=== PATIENT | female | born 1990 | race Caucasian/White ===

== ENCOUNTER → 2017-07-05 | Day surgery (SDC) | payer BC ==
[~2017-07-05] MED LIST: Dexamethasone 4 MG/ML 5 ML MDV ONE; Glycopyrrolate 0.2 MG/ML SDV ONE; HYDROmorphone 0.5 MG/0.5 ML Syringe IVPUSH PRN; HYDROmorphone 1 MG/ML Syringe ONE; Ketorolac 30 MG/ML SDV ONE; Lactated Ringers 1,000 ML IV SCH; Lactated Ringers 1,000 ML ONE; Lidocaine 1% 4 ML ONE; Lidocaine 1% with EPINEPHrine 1:100,000 20 ML MDV ONE; Lidocaine 1%/Sod Bicarbonate in NS 8.4% 1 ML Syringe PRN; Midazolam 1 MG/ML 2 ML SDV ONE; Neostigmine Methylsulfate 10 MG/10 ML MDV ONE; Ondansetron 4 MG/2 ML SDV IVPUSH PRN; Ondansetron 4 MG/2 ML SDV ONE; Propofol 200 MG/20 ML SDV ONE; Rocuronium 50 MG/5 ML Vial ONE; Scopolamine 1.5 MG Transdermal Patch TRDERM ONE; Sodium Chloride 0.9% 10 ML Syringe FLUSH PRN; Zolpidem 5 MG Tab PO PRN; ceFAZolin 1 GM Vial ONE; diphenhydrAMINE 50 MG/ML SDV IVPUSH PRN; fentaNYL 100 MCG/2 ML SDV IVPUSH PRN; fentaNYL 250 MCG/5 ML SDV ONE
--- NOTE | 2017-07-05 07:03 | PCM.OPNOTE ---
- General Post-Op/Procedure Note Date of Surgery/Procedure: 07/05/17 Operative Procedure(s): Vaginal hysterectomy Findings: SVE with a mobile, anteverted uterus. No adnexal masses. Pre Op Diagnosis: Heavy menstrual bleeding. Dysmenorrhea Post-Op Diagnosis: Same Anesthesia Technique: General ET Tube Primary Surgeon: Michelle Bryson Secondary Surgeon: Ruth Block Anesthesia Provider: Cecilio Lehman Pathology: Cervix and uterus sent to pathology for further intervention Fluid Replacement, Intraop: 1,800 Output, Urine Amount: 40 EBL in mLs: 60 Complications: None Condition: Good Free Text/Narrative:: The risks, benefits, indications, potential complications, and alternatives were explained to the patient and informed consent obtained. The patient was taken to the Operating Room where general anesthesia was induced without complication and found to be adequate. The patient was placed in dorsal lithotomy with tez stirrups and an exam under anesthesia revealed the findings detailed above. The patient was then prepped and draped in the usual sterile fashion. A rosa catheter was placed into the bladder. A weighted speculum was placed in the vagina, and the cervix was grasped with two double tooth tenaculums. The cervix was injected circumferentially with 15 mL of lidocaine with dilute epinephrine. The cervix was then circumferentially incised with a scalpel. The posterior cul-de-sac was entered sharply without difficulty. The short weighted speculum was replaced with a long weighted speculum into the peritoneal cavity posteriorly. The bladder was dissected away from the pubovesical cervical fascia anteriorly with a sponge and blunt dissection. The uterosacral ligaments were grasped on either side, cauterized, and transected. Hemostasis was assured. A raytec was used for further blunt dissection of the bladder away from the pubovesical cervical fascia and then the anterior cul de sac was entered sharply with Metzenbaum scissors. The cardinal ligaments were then serially clamped on both sides, cauterized, and transected. The uterine arteries were then clamped, cauterized, and transected on both sides. Hemostasis was adequate. Both cornua were then clamped, cauterized, and transected. The uterus and cervix were then removed. The posterior peritoneum was then closed to the vaginal mucosa with a running, locked 0 vicryl suture. Next the vaginal cuff was closed with a running, locked 0 vicryl suture. Hemostasis was assured. All sponge, lap, needle, and instrument counts were correct x 2. The patient tolerated the procedure well and there were no complications.
--- NOTE | 2017-07-05 07:23 | PCM.PREANE ---
Preanesthetic Assessment - Procedure Proposed Procedure: Total vaginal hysterectomy. - Anesthesia/Transfusion/Family Hx Anesthesia History: Prior Anesthesia Reaction Type of Anesthesia Reaction: Excessive Nausea/Vomiting Family History of Anesthesia Reaction: No Transfusion History: No Prior Transfusion(s) Intubation History: Unknown - Review of Systems General: No Symptoms Pulmonary: No Symptoms Cardiovascular: No Symptoms Gastrointestinal: No Symptoms Neurological: No Symptoms Other: Reports: Depression, Anxiety - Physical Assessment NPO Status Date: 07/04/17 NPO Status Time: 20:00 Pulse: 57 O2 Sat by Pulse Oximetry: 96 Respiratory Rate: 16 Blood Pressure: 93/54 Temperature: 36.6 C Vital Signs: Entered. Height: 1.5 m Weight: 47 kg ASA Class: 2 Mental Status: Alert & Oriented x3 Airway Class: Mallampati = 2 Dentition: Reports: Normal Dentition Thyro-Mental Finger Breadths: 3 Mouth Opening Finger Breadths: 3 ROM/Head Extension: Full Lungs: Clear to Auscultation, Normal Respiratory Effort Cardiovascular: Regular Rate, Regular Rhythm - Allergies Allergies/Adverse Reactions: Allergies Allergy/AdvReac Type Severity Reaction Status Date / Time No Known Allergies Allergy Verified 07/05/17 07:24 - Anesthesia Plan Pre-Op Medication Ordered: None - Acknowledgements Anesthesia Type Planned: General Anesthesia Pt an Appropriate Candidate for the Planned Anesthesia: Yes Alternatives and Risks of Anesthesia Discussed w Pt/Guardian: Yes Pt/Guardian Understands and Agrees with Anesthesia Plan: Yes PreAnesthesia Questionnaire Gastrointestinal History: Reports: Other (See Below) (Crohn's disease) Psychiatric History: Reports: Anxiety, Bipolar, Depression - Past Surgical History Female Surgical History: Reports: Tubal Ligation - SUBSTANCE USE Smoking Status *Q: Current Every Day Smoker Recreational Drug Use History: No - CURRENT (IN HOUSE) MEDS Current Meds: Current Medications Lactated Ringer's (Ringers, Lactated) 1,000 mls @ 125 mls/hr IV ASDIRECTED KIRBY Stop: 07/05/17 23:00 Lidocaine/Sodium Bicarbonate (Buffered Lidocaine 1% In Ns 8.4%) 0.25 ml .XX ONETIME PRN PRN Reason: Prior to IV Start Stop: 07/05/17 18:00 Sodium Chloride (Saline Flush) 10 ml FLUSH ASDIRECTED PRN PRN Reason: Keep Vein Open Stop: 07/05/17 18:00 Discontinued Medications Cefazolin Sodium (Ancef) Confirm Administered Dose 2 gm .ROUTE .ST-MED ONE Stop: 07/05/17 07:04 Dexamethasone (Dexamethasone) Confirm Administered Dose 20 mg .ROUTE .ST-MED ONE Stop: 07/05/17 07:04 Fentanyl (Sublimaze) Confirm Administered Dose 250 mcg .ROUTE .STK-MED ONE Stop: 07/05/17 07:04 Hydromorphone HCl (Dilaudid) Confirm Administered Dose 1 mg .ROUTE .ST-MED ONE Stop: 07/05/17 07:04 Lidocaine HCl (Xylocaine-Mpf 1%) Confirm Administered Dose 4 mls @ as directed .ROUTE .[facility]-MED ONE Stop: 07/05/17 07:04 Lactated Ringer's (Ringers, Lactated) Confirm Administered Dose 1,000 mls @ as directed .ROUTE .[facility]-MED ONE Stop: 07/05/17 07:28 Ketorolac Tromethamine (Toradol) Confirm Administered Dose 30 mg .ROUTE .[facility] MED ONE Stop: 07/05/17 07:04 Midazolam HCl (Versed 1 Mg/Ml) Confirm Administered Dose 2 mg .ROUTE .ST-MED ONE Stop: 07/05/17 07:04 Ondansetron HCl (Zofran) Confirm Administered Dose 4 mg .ROUTE .ST-MED ONE Stop: 07/05/17 07:04 Propofol (Diprivan 20 Ml) Confirm Administered Dose 200 mg .ROUTE .ST-MED ONE Stop: 07/05/17 07:04 Rocuronium [place] (Zemuron) Confirm Administered Dose 50 mg .ROUTE .ST-MED ONE Stop: 07/05/17 07:04
--- NOTE | 2017-07-05 09:24 | PCM.POSTAN ---
POST ANESTHESIA ASSESSMENT - MENTAL STATUS Mental Status: Alert, Oriented - VITAL SIGNS Pulse Rate: 83 SaO2: 100 Resp Rate: 10 Blood Pressure: 95/65 Temperature: 36.9 C - RESPIRATORY Respiratory Status: Respiratory Rate WNL, Airway Patent, O2 Saturation Stable - CARDIOVASCULAR CV Status: Pulse Rate WNL, Blood Pressure Stable - GASTROINTESTINAL GI Status: No Symptoms - PAIN Pain Score: 0 - POST OP HYDRATION Hydration Status: Adequate & Stable
[2017-07-05] MEDS: Acetaminophen/oxyCODONE 325-5 MG Tab PO PRN ×2 (11:34→17:32)
[2017-07-05] MEDS: Ketorolac 30 MG/ML SDV IVPUSH SCH ×2 (15:04→20:36)
[2017-07-06] MEDS: Acetaminophen/oxyCODONE 325-5 MG Tab PO PRN ×2 (00:05→09:03)
[2017-07-06] MEDS: Ketorolac 30 MG/ML SDV IVPUSH SCH (02:11)
--- NOTE | 2017-07-06 06:40 | PCM.SURGPN ---
- General Info Date of Service: 07/06/17 POD#: 1 Functional Status: Reports: Pain Controlled, Tolerating Diet, Ambulating, Urinating - Review of Systems General: Reports: No Symptoms Pulmonary: Reports: No Symptoms Cardiovascular: Reports: No Symptoms Gastrointestinal: Reports: No Symptoms Genitourinary: Reports: No Symptoms Musculoskeletal: Reports: No Symptoms - Patient Data Vitals - Most Recent: Last Vital Signs Temp 37.2 C 07/06/17 00:12 Pulse 90 07/06/17 03:29 Resp 14 07/06/17 03:29 BP 104/53 L 07/06/17 00:12 Pulse Ox 98 07/06/17 03:29 Weight - Most Recent: 47 kg I&O - Last 24 Hours: Intake & Output 07/05/17 07/05/17 07/06/17 14:59 22:59 06:59 Intake Total 2200 920 800 Output Total 310 2100 Balance 1890 -1180 800 Lab Results Last 24 Hrs: Laboratory Results - last 24 hr 07/05/17 07/05/17 07/05/17 Range/Units 07:25 07:25 07:25 WBC 6.76 (3.98-10.04) K/mm3 RBC 4.95 (3.98-5.22) M/mm3 Hgb 15.8 H (11.2-15.7) gm/L Hct 44.7 (34.1-44.9) % MCV 90.3 (79.4-94.8) fl MCH 31.9 (25.6-32.2) pg MCHC 35.3 (32.2-35.5) g/dl RDW Std Deviation 41.7 (36.4-46.3) fL Plt Count 241 (182-369) K/mm3 MPV 9.9 (9.4-12.3) fl Neut % (Auto) 45.3 (34.0-71.1) % Lymph % (Auto) 45.1 (19.3-51.7) % [place] % (Auto) 8.1 (4.7-12.5) % Eos % (Auto) 1.2 (0.7-5.8) Baso % (Auto) 0.3 (0.1-1.2) % Neut # (Auto) 3.06 (1.56-6.13) K/mm3 Lymph # (Auto) 3.05 (1.18-3.74) K/mm3 [place] # (Auto) 0.55 H (0.24-0.36) K/mm3 Eos # (Auto) 0.08 (0.04-0.36) K/mm3 Baso # (Auto) 0.02 (0.01-0.08) K/mm3 Sodium 140 (136-145) mEq/L Potassium 3.8 (3.5-5.1) mEq/L Chloride 107 (98-107) mEq/L Carbon Dioxide 22 (21-32) mEq/L Anion Gap 14.8 (5-15) BUN 10 (7-18) mg/dL Creatinine 0.8 (0.55-1.02) mg/dL Est Cr Clr Drug Dosing 76.54 mL/min Estimated GFR (MDRD) > 60 (>60) mL/min BUN/Creatinine Ratio 12.5 L (14-18) Glucose 90 (74-106) mg/dL Calcium 8.9 (8.5-10.1) mg/dL HCG, Qual (NEGATIVE) Blood Type O POSITIVE Gel Antibody Screen Negative 07/05/17 Range/Units 07:25 WBC (3.98-10.04) K/mm3 RBC (3.98-5.22) M/mm3 Hgb (11.2-15.7) gm/L Hct (34.1-44.9) % MCV (79.4-94.8) fl MCH (25.6-32.2) pg MCHC (32.2-35.5) g/dl RDW Std Deviation (36.4-46.3) fL Plt Count (182-369) K/mm3 MPV (9.4-12.3) fl Neut % (Auto) (34.0-71.1) % Lymph % (Auto) (19.3-51.7) % [place] % (Auto) (4.7-12.5) % Eos % (Auto) (0.7-5.8) Baso % (Auto) (0.1-1.2) % Neut # (Auto) (1.56-6.13) K/mm3 Lymph # (Auto) (1.18-3.74) K/mm3 [place] # (Auto) (0.24-0.36) K/mm3 Eos # (Auto) (0.04-0.36) K/mm3 Baso # (Auto) (0.01-0.08) K/mm3 Sodium (136-145) mEq/L Potassium (3.5-5.1) mEq/L Chloride (98-107) mEq/L Carbon Dioxide (21-32) mEq/L Anion Gap (5-15) BUN (7-18) mg/dL Creatinine (0.55-1.02) mg/dL Est Cr Clr Drug Dosing mL/min Estimated GFR (MDRD) (>60) mL/min BUN/Creatinine Ratio (14-18) Glucose (74-106) mg/dL Calcium (8.5-10.1) mg/dL HCG, Qual Negative (NEGATIVE) Blood Type Gel Antibody Screen Med Orders - Current: Current Medications Ketorolac Tromethamine (Toradol) 30 mg IVPUSH Q6H KIRBY Stop: 07/10/17 14:01 Last Admin: 07/06/17 02:11 Dose: 30 mg Ondansetron HCl (Zofran) 4 mg IVPUSH Q4H PRN PRN Reason: Nausea/Vomiting Oxycodone/Acetaminophen (Percocet 325-5 Mg) 2 tab PO Q6H PRN PRN Reason: Pain (moderate 4-6) Last Admin: 07/06/17 00:05 Dose: 2 tab Zolpidem Tartrate (Ambien) 5 mg PO BEDTIME PRN PRN Reason: Insomnia Last Admin: 07/05/17 20:37 Dose: 5 mg Discontinued Medications Cefazolin Sodium (Ancef) Confirm Administered Dose 2 gm .ROUTE .STK-MED ONE Stop: 07/05/17 07:04 Dexamethasone (Dexamethasone) Confirm Administered Dose 20 mg .ROUTE .STK-MED ONE Stop: 07/05/17 07:04 Diphenhydramine HCl (Benadryl) 12.5 mg IVPUSH Q6H PRN PRN Reason: pruritis Stop: 07/05/17 16:00 Last Admin: 07/05/17 09:47 Dose: 12.5 mg Fentanyl (Sublimaze) Confirm Administered Dose 250 mcg .ROUTE .STK-MED ONE Stop: 07/05/17 07:04 Fentanyl (Sublimaze) 50 mcg IVPUSH Q5M PRN PRN Reason: Pain Stop: 07/05/17 08:38 Last Admin: 07/05/17 10:08 Dose: 50 mcg Glycopyrrolate (Robinul) Confirm Administered Dose 0.2 mg .ROUTE .STK-MED ONE Stop: 07/05/17 09:06 Hydromorphone HCl (Dilaudid) Confirm Administered Dose 1 mg .ROUTE .STK-MED ONE Stop: 07/05/17 07:04 Hydromorphone HCl (Dilaudid) 0.5 mg IVPUSH Q15M PRN PRN Reason: severe pain Stop: 07/05/17 08:38 Last Admin: 07/05/17 10:14 Dose: 0.5 mg Lactated Ringer's (Ringers, Lactated) 1,000 mls @ 125 mls/hr IV ASDIRECTED KIRBY Stop: 07/05/17 23:00 Last Admin: 07/05/17 07:20 Dose: 125 mls/hr Lidocaine HCl (Xylocaine-Mpf 1%) Confirm Administered Dose 4 mls @ as directed .ROUTE .STK-MED ONE Stop: 07/05/17 07:04 Lactated Ringer's (Ringers, Lactated) Confirm Administered Dose 1,000 mls @ as directed .ROUTE .STK-MED ONE Stop: 07/05/17 07:28 Ketorolac Tromethamine (Toradol) Confirm Administered Dose 30 mg .ROUTE .STK- MED ONE Stop: 07/05/17 07:04 Lidocaine/Epinephrine (Xylocaine 1% With Epinephrine 1:100,000) Confirm Administered Dose 20 ml .ROUTE .STK-MED ONE Stop: 07/05/17 07:08 Last Admin: 07/05/17 08:18 Dose: 15 ml Lidocaine/Sodium Bicarbonate (Buffered Lidocaine 1% In Ns 8.4%) 0.25 ml .XX ONETIME PRN PRN Reason: Prior to IV Start Stop: 07/05/17 18:00 Last Admin: 07/05/17 07:19 Dose: 0.25 ml Midazolam HCl (Versed 1 Mg/Ml) Confirm Administered Dose 2 mg .ROUTE .STK-MED ONE Stop: 07/05/17 07:04 Neostigmine Methylsulfate (Neostigmine Methylsulfate) Confirm Administered Dose 10 mg .ROUTE .STK-MED ONE Stop: 07/05/17 09:06 Ondansetron HCl (Zofran) Confirm Administered Dose 4 mg .ROUTE .STK-MED ONE Stop: 07/05/17 07:04 Ondansetron HCl (Zofran) 4 mg IVPUSH ONETIME PRN PRN Reason: Nausea/Vomiting Stop: 07/05/17 16:00 Last Admin: 07/05/17 09:26 Dose: 4 mg Propofol (Diprivan 20 Ml) Confirm Administered Dose 200 mg .ROUTE .STK-MED ONE Stop: 07/05/17 07:04 Rocuronium [place] (Zemuron) Confirm Administered Dose 50 mg .ROUTE .STK-MED ONE Stop: 07/05/17 07:04 Scopolamine (Transderm-Scop) 1.5 mg TRDERM ONETIME ONE Stop: 07/05/17 07:34 Last Admin: 07/05/17 07:56 Dose: 1.5 mg Sodium Chloride (Saline Flush) 10 ml FLUSH ASDIRECTED PRN PRN Reason: Keep Vein Open Stop: 07/05/17 18:00 - Exam General: Alert, Oriented, Cooperative Lungs: Clear to Auscultation, Normal Respiratory Effort Cardiovascular: Regular Rate, Regular Rhythm GI/Abdominal Exam: Soft, Non-Tender Extremities: Normal Inspection Skin: Warm, Dry, Intact - Problem List & Annotations (1) Dysmenorrhea SNOMED Code(s): 416727681 Code(s): N94.6 - DYSMENORRHEA, UNSPECIFIED Status: Acute Current Visit: Yes (2) S/P vaginal hysterectomy SNOMED Code(s): 152328417, 373803577 Code(s): Z90.710 - ACQUIRED ABSENCE OF BOTH CERVIX AND UTERUS Status: Acute Current Visit: Yes - Problem List Review Problem List Initiated/Reviewed/Updated: Yes - My Orders Last 24 Hours: Active Orders 24 hr Category Date Time Status Patient Status [ADT] Routine ADT 07/05/17 11:40 Active Antiembolic Devices [RC] PER UNIT ROUTINE Care 07/05/17 11:12 Active Cooling Warming Measures [RC] ASDIRECTED Care 07/05/17 08:36 Active Insert Srivastava Catheter [Insert Urinary Catheter] [OM.PC] Care 07/05/17 08:00 Ordered Q24H Intake and Output [RC] Q4HR Care 07/05/17 11:12 Active Notify Provider [RC] ASDIRECTED Care 07/05/17 08:36 Active Up ad Samina [RC] PER UNIT ROUTINE Care 07/05/17 11:12 Active Vital Signs [RC] Q4HR Care 07/05/17 08:37 Active Regular Diet [DIET] Diet 07/05/17 Lunch Active Acetaminophen/oxyCODONE [Percocet 325-5 MG] Med 07/05/17 11:12 Active 2 tab PO Q6H PRN Ketorolac [Toradol] Med 07/05/17 14:00 Active 30 mg IVPUSH Q6H Ondansetron [Zofran] Med 07/05/17 11:12 Active 4 mg IVPUSH Q4H PRN Zolpidem [Ambien] Med 07/05/17 20:29 Active 5 mg PO BEDTIME PRN Sequential Compression Device [OM.PC] Per Unit Routine Oth 07/05/17 11:12 Ordered Resuscitation Status Routine Resus Stat 07/05/17 09:19 Ordered Medication Orders Ketorolac Tromethamine (Toradol) 30 mg IVPUSH Q6H KIRBY Stop: 07/10/17 14:01 Last Admin: 07/06/17 02:11 Dose: 30 mg Admin: 07/05/17 20:36 Dose: 30 mg Admin: 07/05/17 15:04 Dose: 30 mg Ondansetron HCl (Zofran) 4 mg IVPUSH Q4H PRN PRN Reason: Nausea/Vomiting Oxycodone/Acetaminophen (Percocet 325-5 Mg) 2 tab PO Q6H PRN PRN Reason: Pain (moderate 4-6) Last Admin: 07/06/17 00:05 Dose: 2 tab Admin: 07/05/17 17:32 Dose: 2 tab Admin: 07/05/17 11:34 Dose: 2 tab Zolpidem Tartrate (Ambien) 5 mg PO BEDTIME PRN PRN Reason: Insomnia Last Admin: 07/05/17 20:37 Dose: 5 mg - Assessment Assessment (Free Text/Narrative):: 27 y/o POD#1 from [facility] - Plan Plan (Free Text/Narrative):: Doing well. Discharge home today. Rx for percocet and scopolamine on discharge. Follow up in 5-6 weeks in clinic
[2017-07-06 10:53] VITALS: BP 103/56
--- NOTE | 2017-07-07 08:19 | PCM.DCSUM1 ---
Discharge Summary - Discharge Data Discharge Date: 07/06/17 Discharge Disposition: Home, Self-Care 01 Condition: Good - Discharge Diagnosis/Problem(s) (1) Dysmenorrhea SNOMED Code(s): 163827357 ICD Code: N94.6 - DYSMENORRHEA, UNSPECIFIED Status: Acute Current Visit: Yes (2) S/P vaginal hysterectomy SNOMED Code(s): 637883480, 740452975 ICD Code: Z90.710 - ACQUIRED ABSENCE OF BOTH CERVIX AND UTERUS Status: Acute Current Visit: Yes - Patient Summary/Data Operative Procedure(s) Performed: Vaginal hysterectomy Complications: None Consults: None Recommended Follow-up Testing/Procedures: Follow up in 5-6 weeks for post op check Hospital Course: Patient admitted for planned TVH. This was uncomplicated. Given she lived greater than 1.5 hours away she was kept for extended recovery period. She was discharged home next day - Patient Instructions Diet: Regular Diet as Tolerated Activity: No Lifting Over 10 Pounds Activity, Other: Pelvic Rest for 6 weeks Driving: Do Not Drive Showering/Bathing: May Shower, No Tub Bathing/Swimming Notify Provider of: Fever, Increased Pain, Swelling and Redness, Drainage, Nausea and/or Vomiting - Discharge Plan Prescriptions/Med Rec: Acetaminophen/oxyCODONE [Percocet 325-5 MG] 2 tab PO Q6H PRN #25 tablet PRN Reason: Pain Home Medications: Home Meds Docusate Sodium [Colace] 100 mg PO BID PRN #0 cap 06/27/16 [Rx] Ibuprofen [IJD: Ibuprofen] 600 mg PO Q4H PRN #0 tablet 06/27/16 [Rx] Acetaminophen/oxyCODONE [Percocet 325-5 MG] 2 tab PO Q6H PRN #25 tablet [Rx] Referrals: Michelle Bryson MD [Primary Care Provider] - (5-6 weeks for post op check) - Discharge Summary/Plan Comment DC Time >30 min.: No - Patient Data Vitals - Most Recent: Last Vital Signs Temp 36.6 C 07/06/17 08:19 Pulse 82 07/06/17 08:19 Resp 14 07/06/17 08:19 BP 103/56 L 07/06/17 08:19 Pulse Ox 98 07/06/17 08:19 Weight - Most Recent: 47 kg Med Orders - Current: Current Medications Discontinued Medications Cefazolin Sodium (Ancef) Confirm Administered Dose 2 gm .ROUTE .STK-MED ONE Stop: 07/05/17 07:04 Dexamethasone (Dexamethasone) Confirm Administered Dose 20 mg .ROUTE .STK-MED ONE Stop: 07/05/17 07:04 Diphenhydramine HCl (Benadryl) 12.5 mg IVPUSH Q6H PRN PRN Reason: pruritis Stop: 07/05/17 16:00 Last Admin: 07/05/17 09:47 Dose: 12.5 mg Fentanyl (Sublimaze) Confirm Administered Dose 250 mcg .ROUTE .STK-MED ONE Stop: 07/05/17 07:04 Fentanyl (Sublimaze) 50 mcg IVPUSH Q5M PRN PRN Reason: Pain Stop: 07/05/17 08:38 Last Admin: 07/05/17 10:08 Dose: 50 mcg Glycopyrrolate (Robinul) Confirm Administered Dose 0.2 mg .ROUTE .STK-MED ONE Stop: 07/05/17 09:06 Hydromorphone HCl (Dilaudid) Confirm Administered Dose 1 mg .ROUTE .STK-MED ONE Stop: 07/05/17 07:04 Hydromorphone HCl (Dilaudid) 0.5 mg IVPUSH Q15M PRN PRN Reason: severe pain Stop: 07/05/17 08:38 Last Admin: 07/05/17 10:14 Dose: 0.5 mg Lactated Ringer's (Ringers, Lactated) 1,000 mls @ 125 mls/hr IV ASDIRECTED KIRBY Stop: 07/05/17 23:00 Last Admin: 07/05/17 07:20 Dose: 125 mls/hr Lidocaine HCl (Xylocaine-Mpf 1%) Confirm Administered Dose 4 mls @ as directed .ROUTE .STK-MED ONE Stop: 07/05/17 07:04 Lactated Ringer's (Ringers, Lactated) Confirm Administered Dose 1,000 mls @ as directed .ROUTE .STK-MED ONE Stop: 07/05/17 07:28 Ketorolac Tromethamine (Toradol) Confirm Administered Dose 30 mg .ROUTE .STK- MED ONE Stop: 07/05/17 07:04 Ketorolac Tromethamine (Toradol) 30 mg IVPUSH Q6H KIRBY Stop: 07/10/17 14:01 Last Admin: 07/06/17 02:11 Dose: 30 mg Lidocaine/Epinephrine (Xylocaine 1% With Epinephrine 1:100,000) Confirm Administered Dose 20 ml .ROUTE .STK-MED ONE Stop: 07/05/17 07:08 Last Admin: 07/05/17 08:18 Dose: 15 ml Lidocaine/Sodium Bicarbonate (Buffered Lidocaine 1% In Ns 8.4%) 0.25 ml .XX ONETIME PRN PRN Reason: Prior to IV Start Stop: 07/05/17 18:00 Last Admin: 07/05/17 07:19 Dose: 0.25 ml Midazolam HCl (Versed 1 Mg/Ml) Confirm Administered Dose 2 mg .ROUTE .STK-MED ONE Stop: 07/05/17 07:04 Neostigmine Methylsulfate (Neostigmine Methylsulfate) Confirm Administered Dose 10 mg .ROUTE .STK-MED ONE Stop: 07/05/17 09:06 Ondansetron HCl (Zofran) Confirm Administered Dose 4 mg .ROUTE .STK-MED ONE Stop: 07/05/17 07:04 Ondansetron HCl (Zofran) 4 mg IVPUSH ONETIME PRN PRN Reason: Nausea/Vomiting Stop: 07/05/17 16:00 Last Admin: 07/05/17 09:26 Dose: 4 mg Ondansetron HCl (Zofran) 4 mg IVPUSH Q4H PRN PRN Reason: Nausea/Vomiting Oxycodone/Acetaminophen (Percocet 325-5 Mg) 2 tab PO Q6H PRN PRN Reason: Pain (moderate 4-6) Last Admin: 07/06/17 09:03 Dose: 2 tab Propofol (Diprivan 20 Ml) Confirm Administered Dose 200 mg .ROUTE .STK-MED ONE Stop: 07/05/17 07:04 Rocuronium [place] (Zemuron) Confirm Administered Dose 50 mg .ROUTE .STK-MED ONE Stop: 07/05/17 07:04 Scopolamine (Transderm-Scop) 1.5 mg TRDERM ONETIME ONE Stop: 07/05/17 07:34 Last Admin: 07/05/17 07:56 Dose: 1.5 mg Sodium Chloride (Saline Flush) 10 ml FLUSH ASDIRECTED PRN PRN Reason: Keep Vein Open Stop: 07/05/17 18:00 Zolpidem Tartrate (Ambien) 5 mg PO BEDTIME PRN PRN Reason: Insomnia Last Admin: 07/05/17 20:37 Dose: 5 mg *Q Meaningful Use (DIS) - VTE *Q VTE Criteria *Q: - Stroke *Q Stroke Criteria *Q: - AMI *Q AMI Criteria *Q:
== END | disposition home or self-care (01) ==
LOC: MERGE 07:03 → JD.SDS 07:03 → EDSTATUS 08:00 → EDLOC 09:17 → JD.OB 09:17 → INTOOBSV 09:17 → UNDOADMOB 09:17 → UNDODISIN 07-06 09:05 → UNDODISOB 07-06 09:05
PROVIDERS: ATTEND Obstetrics & Gynecology
DX: N72 Inflammatory disease of cervix uteri (principal); F41.9 Anxiety disorder, unspecified; F31.9 Bipolar disorder, unspecified; F17.210 Nicotine dependence, cigarettes, uncomplicated; Z98.51 Tubal ligation status; Z90.79 Acquired absence of other genital organ(s); Z98.890 Other specified postprocedural states; Z79.899 Other long term (current) drug therapy
CPT/HCPCS: 36415; 58260; 80048; 84703; 85025; 86850; 86900; 86901; A9270; J0690; J1100; J1170; J1200; J1885; J2250; J2405; J2710; J3010; J3490; J7120; 00944; J2704

== ENCOUNTER 2019-03-28 18:46 | Emergency (ER) | payer MEDICAID, OTHER ==
[2019-03-28 18:57] VITALS: BP 82/65
[2019-03-28] MEDS ORDERED: HYDROmorphone 1 MG/ML Syringe IVPUSH STA (19:32)
[2019-03-28] MEDS ORDERED: Ondansetron 4 MG/2 ML SDV IVPUSH ONE (19:32)
--- NOTE | 2019-03-28 19:38 | EDM.PDOC ---
ED HPI GENERAL MEDICAL PROBLEM - General Chief Complaint: Abdominal Pain Stated Complaint: RIGHT SIDE AND UPPER ABDOMINAL PAIN Time Seen by Provider: 03/28/19 19:11 Source of Information: Reports: Patient, Family (), RN Notes Reviewed History Limitations: Reports: No Limitations - History of Present Illness INITIAL COMMENTS - FREE TEXT/NARRATIVE: The patient states that she developed epigastric abdominal pain 2 days ago, 03/26/2019. She describes the pain at that time as dull, achy, and burning. It was constant. The patient had not identified any modifiers, and did not notice any association with food. She states that the pain resolved yesterday, 03/27/2019. The pain recurred again today, and this time extended to the right upper quadrant, to her far right ribs, and to her right scapular area. She describes the pain now as stabbing and throbbing. It is still constant, without identified modifiers, and she has not noticed an association with food. She reports having nausea and dry heaves this morning, then just nausea for the remainder of the day, including now. She states that she feels bloated, although she states that she always feel bloated whenever she eats. No bloody or black bowel movements, although she states that she has not had a bowel movement in the last 2 days. She denies dysuria, but reports urinary urgency for the past few days. No recent fever. No recent cough, dyspnea, chest pain, palpitations, or weight changes. No prior similar symptoms. The patient's initial BP was noted to be 82/65, although she is not tachycardic. The patient confirms that she has felt lightheaded when upright since this morning, but does not feel lightheaded if she is supine. The patient has a history of GERD, but states that she takes [id number] omeprazole only sporadically, on an as-needed basis. The patient also reports having a headache for the past 4 days, although she also confirms that she gets frequent headaches. She takes Excedrin fairly often. The patient's PCP is Radha Huerta NP. Her Forger Helper is Dr. Michelle Bryson. Right Upper Abdomen Pain Score (Numeric/FACES): 7 - Related Data Allergies Allergy/AdvReac Type Severity Reaction Status Date / Time No Known Allergies Allergy Verified 03/28/19 18:54 Home Meds: Home Meds Ondansetron [Zofran ODT] 1 tab PO Q8H PRN #10 tab.dis 03/28/19 [Rx] Past Medical History Gastrointestinal History: Reports: GERD, PUD (On EGD. 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: 4 Neurological History: Reports: Headaches, Chronic Psychiatric History: Reports: Anxiety (untreated), Depression (untreated) - Past Surgical History HEENT Surgical History: Reports: Myringotomy w Tube(s) (bilateral), Oral Surgery (wisdom teeth extraction), Tonsillectomy GI Surgical History: Reports: Colonoscopy (x 1), EGD (x 2) Female Surgical History: Reports: Hysterectomy (partial), LEEP, Tubal Ligation Social & Family History - Family History Family Medical History: Noncontributory - Tobacco Use Smoking Status *Q: Current Every Day Smoker Years of Tobacco use: 12 Packs/Tins Daily: 1 - Alcohol Use Alcohol Use History: Yes Alcohol Use Frequency: Socially - Recreational Drug Use Recreational Drug Use: No - Living Situation & Occupation Living situation: Reports: , with Spouse, with Family (4 kids) 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 ED EXAM, GI/ABD - Physical Exam Exam: See Below Exam Limited By: No Limitations General Appearance: Alert, WD/WN, No Apparent Distress Eyes: Bilateral: Normal Appearance, EOMI Ears: Normal External Exam, Hearing Grossly Normal Nose: Normal Inspection Throat/Mouth: Normal Inspection, Normal Lips, Normal Voice, No Airway Compromise Head: Atraumatic, Normocephalic Neck: Normal Inspection, Full Range of Motion Respiratory/Chest: No Respiratory Distress, Lungs Clear, Normal Breath Sounds, No Accessory Muscle Use Cardiovascular: Normal Peripheral Pulses, Regular Rate, Rhythm, No Edema, No Gallop, No JVD, No Murmur, No Rub GI/Abdominal Exam: Normal Bowel Sounds (NORMAL), Soft, No Organomegaly, No Distention, No Abnormal Bruit, No Mass, Tender (Palpation of the entire left abdomen leads to Rovsing sign with pain felt in the epigastrium and right upper quadrant. Palpation to the right lower quadrant and far right abdomen yield local tenderness, but the patient is most tender in the right upper quadrant and epigastrium.) (Female) Exam: Deferred Rectal (Female) Exam: Deferred Back Exam: Normal Inspection, Full Range of Motion. No: CVA Tenderness (L), CVA Tenderness (R) Extremities: Normal Inspection, Normal Range of Motion, No Pedal Edema, Normal Capillary Refill Neurological: Alert, Oriented, Normal Cognition, No Motor/Sensory Deficits Psychiatric: Normal Affect Skin Exam: Warm, Dry, Intact, Normal Color, No Rash Course - Vital Signs Last Recorded V/S: Last Vital Signs Temp 36.9 C 03/28/19 18:55 Pulse 92 03/28/19 18:55 Resp 18 03/28/19 18:55 BP 82/65 L 03/28/19 18:55 Pulse Ox 100 03/28/19 18:55 Orthostatic Blood Pressure [ 96/60 Standing] Orthostatic Blood Pressure [ 93/62 Sitting] Orthostatic Blood Pressure [ 91/56 Supine] - Orders/Labs/Meds Orders: Active Orders 24 hr Category Date Time Status Orthostatic Vital Signs [RC] STAT Care 03/28/19 19:33 Active Orthostatic Vital Signs [RC] STAT Care 03/28/19 20:33 Active Abdomen Pelvis w Cont [CT] Stat Exams 03/28/19 19:32 Taken Sodium Chloride 0.9% [Saline Flush] Med 03/28/19 19:58 Active 10 ml FLUSH ONETIME PRN Medication Orders Sodium Chloride (Saline Flush) 10 ml FLUSH ONETIME PRN PRN Reason: KEEP VEIN OPEN Labs: Laboratory Tests 03/28/19 03/28/19 03/28/19 Range/Units 19:35 19:35 19:37 WBC 8.14 (3.98-10.04) K/mm3 RBC 4.82 (3.98-5.22) M/mm3 Hgb 15.4 (11.2-15.7) gm/L Hct 44.3 (34.1-44.9) % MCV 91.9 (79.4-94.8) fl MCH 32.0 (25.6-32.2) pg MCHC 34.8 (32.2-35.5) g/dl RDW Std Deviation 40.2 (36.4-46.3) fL Plt Count 288 (182-369) K/mm3 MPV 10.0 (9.4-12.3) fl Neutrophils % (Manual) 42 (40-60) % Band Neutrophils % 1 (0-10) % Lymphocytes % (Manual) 49 H (20-40) % Atypical Lymphs % 0 % Monocytes % (Manual) 7 (2-10) % Eosinophils % (Manual) 1 (0.7-5.8) % Basophils % (Manual) 0 L (0.1-1.2) Platelet Estimate Adequate RBC Morph Comment Normal Sodium 142 (136-145) mEq/L Potassium 3.9 (3.5-5.1) mEq/L Chloride 106 (98-107) mEq/L Carbon Dioxide 25 (21-32) mEq/L Anion Gap 14.9 (5-15) BUN 9 (7-18) mg/dL Creatinine 0.8 (0.55-1.02) mg/dL Est Cr Clr Drug Dosing 75.87 mL/min Estimated GFR (MDRD) > 60 (>60) mL/min BUN/Creatinine Ratio 11.3 L (14-18) Glucose 78 (74-106) mg/dL Calcium 9.0 (8.5-10.1) mg/dL Total Bilirubin 0.3 (0.2-1.0) mg/dL AST 13 L (15-37) U/L ALT 17 (14-59) U/L Alkaline Phosphatase 74 (46-116) U/L Total Protein 7.0 (6.4-8.2) g/dl Albumin 4.1 (3.4-5.0) g/dl Globulin 2.9 gm/dL Albumin/Globulin Ratio 1.4 (1-2) Lipase 119 (73-393) U/L Urine Color Yellow (Yellow) Urine Appearance Clear (Clear) Urine pH 6.0 (5.0-8.0) Ur Specific [place] 1.015 (1.005-1.030) Urine Protein Negative (Negative) Urine Glucose (UA) Negative (Negative) Urine Ketones Negative (Negative) Urine Occult Blood Negative (Negative) Urine Nitrite Negative (Negative) Urine Bilirubin Negative (Negative) Urine Urobilinogen 0.2 (0.2-1.0) Ur Leukocyte Esterase Negative (Negative) Urine RBC 0-5 (0-5) /hpf Urine WBC 0-5 (0-5) /hpf Ur Squamous Epith Cells 0-5 (0-5) /hpf Urine Bacteria Occasional (FEW) /hpf Urine Mucus Not seen (FEW) /hpf Meds: Medications Generic Name Dose Route Start Last Admin Trade Name Gene PRN Reason Stop Dose Admin Sodium Chloride 10 ml 03/28/19 19:58 Saline Flush FLUSH ONETIME PRN KEEP VEIN OPEN Discontinued Medications Generic Name Dose Route Start Last Admin Trade Name Freq PRN Reason Stop Dose Admin Diatrizoate Meglum/Diatrizoate Sod 60 ml 03/28/19 19:58 03/28/19 21:17 Gastrografin 37% PO 03/28/19 19:59 60 ml ONETIME ONE Administration Hydromorphone HCl 1 mg 03/28/19 19:32 03/28/19 19:57 Dilaudid IVPUSH 03/28/19 19:33 1 mg ONETIME STA Administration Sodium Chloride 1,000 mls @ 150 mls/hr 03/28/19 19:45 03/28/19 20:42 Normal Saline IV 999 mls/hr ASDIRECTED IKRBY Infusion Sodium Chloride 1,000 mls @ 999 mls/hr 03/28/19 20:32 03/28/19 20:42 Normal Saline IV 03/28/19 21:32 Not Given ONETIME ONE Iohexol 100 ml 03/28/19 19:58 03/28/19 21:18 Omnipaque-300 IVPUSH 03/28/19 19:59 100 ml ONETIME ONE Administration Metoclopramide HCl 10 mg 03/28/19 20:58 03/28/19 21:23 Reglan IVPUSH 03/28/19 20:59 10 mg ONETIME STA Administration Ondansetron HCl 4 mg 03/28/19 19:32 03/28/19 19:49 Zofran IVPUSH 03/28/19 19:33 4 mg ONETIME ONE Administration - Re-Assessments/Exams Free Text/Narrative Re-Assessment/Exam: 03/28/19 19:34 By history, I am most concerned that the patient's abdominal pain is due to cholecystitis, although it is also possible that she is suffering from an unusual presentation of appendicitis, including a perforated appendicitis. I have ordered a CT scan of the abdomen and pelvis with oral and IV contrast, which should distinguish between the two. In addition, I have ordered blood work and a urinalysis. The patient's blood pressure is shockingly low at 82/65, and she reports feeling lightheaded when upright since this morning. The patient appears to be quite fit, and it may be that she ordinarily runs low blood pressure, however, the concern here is not so much for dehydration, but whether or not she may have an intra-abdominal bleed. A ruptured ovarian cyst would be the most likely culprit. I have ordered orthostatics. 03/28/19 20:05 The patient is orthostatic. 03/28/19 20:12 If the patient is orthostatic because she is intravascularly depleted due to dehydration, then the treatment is simply IV fluid, however, if she is orthostatic because of an intra-abdominal bleed, then IV fluid could make matters worse. The CT scan will be able to make that distinction, but will take time. A FAST scan could make the distinction, however, I do not perform FAST scans. Case therefore discussed with Dr. Bryant at 20:08. Unfortunately, Dr. Bryant does not perform FAST scans, either. He agreed that if the patient has an intra-abdominal bleed that IV fluid could make it worse, however, without a history of trauma, he felt that it was most likely that the patient is dehydrated. He recommended that we give the patient 2 L of LR, quickly. 03/28/19 20:[address] Lino at 20:16, who is off-service. He is able to perform FAST scans, and will come to the ED to perform one. 03/28/19 20:32 Dr. Lino has performed a FAST scan, which appears to be negative for intra- abdominal fluid. I have therefore ordered a 1 L bolus of NS, after which we will recheck orthostatics. 03/28/19 21:53 The patient's CBC is unremarkable. Her CMP is unremarkable. Her lipase is not elevated. Her urinalysis is unremarkable. CT scan of the abdomen and pelvis with oral and IV contrast is read by [facility] as "No acute findings." 03/28/19 21:55 Following 1 L of NS, the patient is no longer orthostatic. 03/28/19 22:33 Test results discussed with the patient. Celsa's workup, with the exception of the orthostatics, is completely unremarkable. I explained to the patient that that does not mean that she does not have a sick gallbladder, and that further evaluation is necessary. I will therefore refer her to Dr. Bryant, who can order an ultrasound of the right upper quadrant and a HIDA scan, if he feels it appropriate. In the meantime, I will have the patient eat a low-fat diet. The patient declined an offer for a prescription for [place], but accepted a prescription for Zofran. Departure - Departure Time of Disposition: 22:34 Disposition: Home, Self-Care 01 Condition: Good Clinical Impression: Abdominal pain of unknown etiology, Orthostatic hypotension - Discharge Information *PRESCRIPTION DRUG MONITORING PROGRAM REVIEWED*: Not Applicable *COPY OF PRESCRIPTION DRUG MONITORING REPORT IN PATIENT MICHAEL: Not Applicable Referrals: Radha Huerta NP [Primary Care Provider] - Dinesh Bryant MD [Physician] - Forms: ED Department Discharge Additional Instructions: You were seen in the emergency room for right upper abdominal pain with radiation through to your back, along with nausea. Workup in the ER included blood work, a urinalysis, positional blood pressure checks, and a CT scan of your abdomen and pelvis. Your blood pressure was found to drop excessively between lying and standing. You were given IV fluid, and this normalized. The remainder of your workup was entirely unremarkable, and does not explain the cause of your symptoms. Based on your history and physical examination, you may be suffering from gallbladder disease. Further evaluation is necessary. A prescription for the anti-nausea medicine Zofran has been sent to the [facility]. Dissolve one tablet of Zofran on your tongue up to every 8 hours, as needed for nausea/vomiting. Eat as low-fat a diet as possible. Stay adequately hydrated - Gatorade or Powerade are best. Follow-up with the surgeon Dr. Dinesh Bryant at the next available appointment, for further evaluation. If any other problems, please do not hesitate to return to the ER. - My Orders Last 24 Hours: My Active Orders 03/28/19 19:32 Abdomen Pelvis w Cont [CT] Stat 03/28/19 19:33 Orthostatic Vital Signs [RC] STAT 03/28/19 19:58 Sodium Chloride 0.9% [Saline Flush] 10 ml FLUSH ONETIME PRN 03/28/19 20:33 Orthostatic Vital Signs [RC] STAT - Assessment/Plan Last 24 Hours: My Active Orders 03/28/19 19:32 Abdomen Pelvis w Cont [CT] Stat 03/28/19 19:33 Orthostatic Vital Signs [RC] STAT 03/28/19 19:58 Sodium Chloride 0.9% [Saline Flush] 10 ml FLUSH ONETIME PRN 03/28/19 20:33 Orthostatic Vital Signs [RC] STAT
[2019-03-28] MEDS ORDERED: Sodium Chloride 0.9% 1,000 ML IV SCH (19:45)
[2019-03-28] MEDS ORDERED: Sodium Chloride 0.9% 10 ML Syringe FLUSH PRN (19:58)
[2019-03-28] MEDS ORDERED: Iohexol 647 MG/ML 100 ML Bottle IVPUSH ONE (19:58)
[2019-03-28] MEDS ORDERED: Diatrizoate Meglumine/Diatrizoate Sodium 37% 120 ML Bottle PO ONE (19:58)
[2019-03-28] MEDS ORDERED: Sodium Chloride 0.9% 1,000 ML IV ONE (20:32)
[2019-03-28] MEDS ORDERED: Metoclopramide 10 MG/2 ML SDV IVPUSH STA (20:58)
--- NOTE | 2019-03-29 07:48 | CT ---
CT abdomen and pelvis Technique: Multiple axial sections were obtained from above the dome of the diaphragm inferiorly through the pubic symphysis. Intravenous and oral contrast was utilized. Delayed images were obtained through the bladder. Comparison: No prior CT abdomen or pelvis exam. Previous abdominal x-ray of 05/13/15 and prior right upper quadrant abdominal ultrasound of 12/12/12. Findings: Small portion of the visualized lung bases are clear. Liver contains no focal parenchymal abnormality. Spleen appears normal. Adrenal glands show no nodule. Pancreas is within normal limits. Kidneys show symmetric contrast enhancement without hydronephrosis or mass. Aorta shows no aneurysm. Gallbladder contains no calcified gallstones. No retroperitoneal adenopathy or mesenteric abnormalities are seen. Appendix is seen which is normal in size. No pelvic mass or adenopathy is seen. Delayed images show contrast within the bladder. Bone window settings were reviewed which appear within normal limits for the patient's age. Incidental note of small limbus vertebra within the anterior and superior endplate of L5. Impression: 1. Incidental spine finding. 2. Nothing acute is appreciated on CT study of the abdomen and pelvis. Diagnostic code #2 I agree with preliminary report from [facility], finalized on 03/28/19, 10:45 PM Central Time
== END 2019-03-28 22:50 | disposition home or self-care (01) ==
LOC: JD.ED 18:46
DX: I95.1 Orthostatic hypotension (principal); R10.13 Epigastric pain; F17.210 Nicotine dependence, cigarettes, uncomplicated
CPT/HCPCS: 36415; 74177; 80053; 81001; 83690; 85007; 85027; 96361; 96374; 96375; 99284; J1170; J2405; J2765; J7040; Q9963; Q9967

== ENCOUNTER 2021-06-08 14:39 | Emergency (ER) | payer MEDICAID, OTHER ==
[2021-06-08 14:58] VITALS: BP 98/63; PULSE 71
--- NOTE | 2021-06-08 15:56 | EDM.PDOC ---
ED HPI GENERAL MEDICAL PROBLEM - General Chief Complaint: ENT Problem Stated Complaint: ear pain Time Seen by Provider: 06/08/21 14:54 Source of Information: Reports: Patient History Limitations: Reports: No Limitations - History of Present Illness INITIAL COMMENTS - FREE TEXT/NARRATIVE: The patient presents with right ear pain. She was seen at the walk in clinic last week for right ear pain. She was told she had a wax impaction. She went to see her provider today in [place] and he put some numbing drops in her ear and tried to remove the impaction. He was unable. She has more pain and there was some bleeding. He called Dr Smith to get her in to his clinic. She has no fever, chills, cough, or sore throat. She says she cannot hear out of that ear now. She had many ear infections in the past and has a known perforation to the right TM and cannot get ear irrigations. Onset: Sudden Duration: Hour(s): Location: Reports: Other (Right ear) Quality: Reports: Sharp Severity: Severe Improves with: Reports: None Worsens with: Reports: None Associated Symptoms: Reports: No Other Symptoms Right Ear Pain Score (Numeric/FACES): 9 - Related Data Allergies Allergy/AdvReac Type Severity Reaction Status Date / Time No Known Allergies Allergy Verified 06/08/21 14:51 Home Meds: Home Meds Hydrocodone/Acetaminophen [Hydrocodone-Acetamin 5-325 mg] 1 - 2 each PO Q6H PRN #15 tablet 06/08/21 [Rx] Ofloxacin 10 drop EARRT DAILY #10 ml 06/08/21 [Rx] Past Medical History Cardiovascular History: Reports: None Respiratory History: Reports: None Gastrointestinal History: Reports: GERD, PUD, Other (See Below) Other Gastrointestinal History: one Dr told her she may have Crohns disease, has never been treated for it. 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: Neurological History: Reports: Headaches, Chronic Psychiatric History: Reports: Anxiety, Depression - Infectious Disease History Infectious Disease History: Reports: None - Past Surgical History HEENT Surgical History: Reports: Myringotomy w Tube(s), Oral Surgery, Tonsillectomy GI Surgical History: Reports: Colonoscopy, EGD Female Surgical History: Reports: Hysterectomy, LEEP, Tubal Ligation Social & Family History - Family History Family Medical History: No Pertinent Family History - Caffeine Use Caffeine Use: Reports: Soda - Recreational Drug Use Recreational Drug Use: No - Living Situation & Occupation Living situation: Reports: , with Spouse, with Family (4 kids) 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 Superficial laceration to the posterior right ear canal with possible perforation of the TM.) Nose: Normal Inspection Mouth/Throat: Normal Inspection Head: Atraumatic Course - Vital Signs Last Recorded V/S: Last Vital Signs Temp 97.2 F 06/08/21 14:56 Pulse 71 06/08/21 14:56 Resp 16 06/08/21 14:56 BP 98/63 06/08/21 14:56 Pulse Ox 98 06/08/21 14:56 - Re-Assessments/Exams Free Text/Narrative Re-Assessment/Exam: 06/08/21 15:59 I see a superficial laceration to the posterior ear canal. I called Dr Brito the ENT credit administration specialist in [place] and he wanted her on oofloxacin and she can follow up in his clinic. Departure - Departure Time of Disposition: 16:05 Disposition: Home, Self-Care 01 Condition: Good Clinical Impression: Laceration of right ear canal Qualifiers: Encounter type: initial encounter Qualified Code(s): S01.311A - Laceration wit hout foreign body of right ear, initial encounter Tympanic membrane perforation Qualifiers: Laterality: right Qualified Code(s): H72.91 - Unspecified perforation of tympanic membrane, right ear - Discharge Information *PRESCRIPTION DRUG MONITORING PROGRAM REVIEWED*: Not Applicable *COPY OF PRESCRIPTION DRUG MONITORING REPORT IN PATIENT MICHAEL: Not Applicable Prescriptions: Hydrocodone/Acetaminophen [Hydrocodone-Acetamin 5-325 mg] 1 - 2 each PO Q6H PRN #15 tablet PRN Reason: Pain Ofloxacin 10 drop EARRT DAILY #10 ml Referrals: Barrington,Dustin J, LAP WINDING MACHINE OPERATOR [Primary Care Provider] - Philip Smith MD [Ordering Only Provider] - 1 Week Forms: ED Department Discharge Additional Instructions: Use the ofloxacin 10 drops in the right ear daily. Take tylenol or motrin as needed for pain. If that does not help, try the hydrocodone. Please return if you are worse. Follow up with Dr Smith or with Dr Brito for ENT. Dr Brito can be reached at . Please return if you are worse. Sepsis Event Note (ED) - Focused Exam Vital Signs: Vital Signs Temp Pulse Resp BP Pulse Ox 06/08/21 14:56 97.2 F 71 16 98/63 98
== END 2021-06-08 16:25 | disposition home or self-care (01) ==
LOC: JD.ED 14:39
DX: S09.21XA Traumatic rupture of right ear drum, initial encounter (principal); S01.311A Laceration without foreign body of right ear, initial encounter; X58.XXXA Exposure to other specified factors, initial encounter
CPT/HCPCS: 99282; 99283